=== PATIENT | male | born 1990 | race Caucasian/White ===

== ENCOUNTER 2016-10-14 14:56 | Emergency (ER) | payer BC ==
--- NOTE | 2016-10-14 15:24 | UCPHY ---
H & P Time Seen by Provider: 10/14/16 15:17 Patient Type: New HPI/ROS: 26-year-old male presents complaining of nasal congestion, sinus congestion, sore throat, fevers chills and body aches for approximately 5 days. Review of systems As per HPI-cold symptoms General no fever no chills no weakness HEENT no eye pain no eye discharge. No eye redness, positive sore throat Respiratory positive cough, no shortness of breath Cardiac no chest pain, no peripheral edema GI no abdominal pain, no diarrhea, no constipation, positive nausea, no vomiting no flank pain, no hematuria, no dysuria Musculoskeletal no myalgias, no joint pain Heme no easy bruising, no easy bleeding Endo no polyuria, no polydipsia Skin no rashes, no pruritus Neuro no syncope, no dizziness, no headaches Psych is no suicidal ideation, no homicidal ideation Past Medical/Surgical History: Appendectomy 1 year ago Social History: Denies alcohol or drug use Smoking Status: Never smoked Physical Exam: 26-year-old male Alert and oriented in no acute distress nontoxic appearance, afebrile Atraumatic normocephalic Extraocular muscles intact, anicteric Neck-supple, positive anterior cervical lymphadenopathy mildly tender to palpation Oropharynx positive enlarged tonsils, erythematous, no uvular deviation, no purulent exudate, tolerating own secretions, no trismus Lungs clear to auscultation bilaterally Heart regular rate and rhythm Abdomen normoactive bowel sounds soft nontender Extremities no cyanosis clubbing edema Skin no rash Constitutional: Initial Vital Signs Temperature (C) 37.1 C 10/14/16 15:23 Heart Rate 88 10/14/16 15:23 Respiratory Rate 16 10/14/16 15:23 Blood Pressure 143/81 H 10/14/16 15:23 O2 Sat (%) 96 10/14/16 15:23 O2 Delivery Mode Room Air Allergies/Adverse Reactions: Penicillins Allergy (Verified 10/14/16 15:23) Home Medications: Medication Instructions Recorded AZITHROMYCIN [Z-PACK] 250 mg PO DAILY #6 tab 10/14/16 Ondansetron Odt [Zofran Odt 4 mg 4 mg PO Q4 PRN #10 tab 10/14/16 (*)] Medical Decision Making ED Course/Re-evaluation: Patient seen and evaluated for cold symptoms, nasal congestion, sinus congestion , sore throat of approximately 4-5 hours days duration also associated with fevers chills and body aches. Physical exam significant for erythematous throat with white exudate a, positive anterior cervical lymphadenopathy Influenza negative Rapid strep negative Impression Acute pharyngitis Plan We will treat for strep based on clinical exam Z-Gregor Ondansetron Return if worsening - Data Points Laboratory Results: 10/14/16 10/14/16 10/14/16 Unknown 15:22 15:17 Influenza Typ A,B (DFA) NEGATIVE FOR FLU (NEGATIVE) Group A Strep Screen NEGATIVE (NEGATIVE) Group A Strep DNA Pending Medications Given: Discontinued Medications Ibuprofen (Motrin) 600 mg PO EDNOW ONE Stop: 10/14/16 15:28 Last Admin: 10/14/16 15:30 Dose: 600 mg Departure - Departure Disposition: Home, Routine, Self-Care Clinical Impression: Acute pharyngitis, Sinusitis Condition: Good Instructions: Pharyngitis (ED) Referrals: NONE *PRIMARY CARE P,. [Primary Care Provider] - As per Instructions Prescriptions: AZITHROMYCIN [Z-PACK] 250 mg PO DAILY #6 tab Ondansetron Odt [Zofran Odt 4 mg (*)] 4 mg PO Q4 PRN #10 tab PRN Reason: Nausea/Vomiting, Use 1st - PQRS PQRS Measurement: na
[2016-10-14 15:26] VITALS: BP 143/81; PULSE 88; RESP 16; TEMP 98.7; O2SAT 96
[2016-10-14] MEDS ORDERED: IBUPROFEN 200 MG TAB PO ONE (15:27)
== END 2016-10-14 16:00 | disposition home or self-care (01) ==
LOC: CED 14:56
DX: J02.9 Acute pharyngitis, unspecified (principal); R09.81 Nasal congestion; R50.9 Fever, unspecified; R52 Pain, unspecified
CPT/HCPCS: 87400-PO; 87880-PO; G0463-PO